=== PATIENT | female | born 1990 | race Caucasian/White ===

== ENCOUNTER 2018-06-19 02:14 | Emergency (ER) | payer OTHER ==
[~2018-06-19] VITALS: Ht 160 cm; Wt 59.0 kg
[2018-06-19 02:21] VITALS: Ht 160 cm; Wt 59.0 kg
[2018-06-19 03:17] VITALS: BP 140/112
== END 2018-06-19 03:19 | disposition other institution (70) ==
LOC: ED 02:14
DX: Z02.89 Encounter for other administrative examinations (principal)

== ENCOUNTER 2018-07-02 11:54 | Emergency (ER) | payer MEDICAID ==
[~2018-07-02] VITALS: Ht 162.6 cm; Wt 59.0 kg
[2018-07-02 12:12] VITALS: BP 117/96; Ht 162.6 cm; Wt 59.0 kg
[2018-07-02 13:03] LABS: BASOPHIL % 0.5 % (0-2); CALCIUM 9.2 mg/dL (8.5-10.1); CARBON DIOXIDE 25.7 mmol/L (21-32); CHLORIDE SERUM 102 mmol/L (98-107); CREATININE SERUM 0.7 mg/dL (0.6-1.0); GFR1 > 60 mL/min; GLUCOSE SERUM 76 mg/dL (74-106); PLATELET COUNT 355 x10^3mcL (130-400); POTASSIUM SERUM 3.4 mmol/L (3.5-5.1); RED CELL DISTRIBUTION WIDTH 14.5 % (11.5-14.5); SODIUM SERUM 138 mmol/L (136-145)
[2018-07-02 13:07] LABS: ALBUMIN 3.9 g/dL (3.4-5.0); ALKALINE PHOSPHATASE 91 U/L (46-116); ALT/SGPT 29 U/L (14-59); AST/SGOT 19 U/L (15-37); BILIRUBIN TOTAL 0.5 mg/dL (0.20-1.00); TOTAL PROTEIN, SERUM 7.6 g/dL (6.4-8.2)
== END 2018-07-02 14:18 | disposition left against medical advice (07) ==
LOC: ED 11:54
PROVIDERS: Emergency Medicine
DX: F15.10 Other stimulant abuse, uncomplicated (principal); F41.9 Anxiety disorder, unspecified
CPT/HCPCS: 36415; G0480; J1200; J1630; J2060; J7030; Q0092